=== PATIENT | male | born 1965 | race Two or more races ===

== ENCOUNTER 2020-04-20 07:55 | Emergency (ER) | payer MEDICAID ==
[~2020-04-20] VITALS: Ht 190.5 cm; Wt 99.8 kg
[2020-04-20 07:55] VITALS: BP 146/92
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
[2020-04-20] MEDS ORDERED: fentaNYL 100 mcg/2 mL IV ONE ×2 (08:00→09:12)
[2020-04-20] MEDS ORDERED: ABILIFY2 MG ORAL (08:07)
[2020-04-20] MEDS ORDERED: BENADRYL25 MG ORAL (08:07)
--- NOTE | 2020-04-20 08:13 | NUR ---
ED Nurse Note: 20 g IV started in left AC, patent and intact. Blood drawn and sent to lab.
--- NOTE | 2020-04-20 08:15 | NUR ---
ED Nurse Note: Patient taken to CT
[2020-04-20 08:31] LABS: BASOPHILS % (AUTO) 1.7 % (0.0-2.0); EOSINOPHILS % (AUTO) 1.1 % (0.0-3.0); HEMATOCRIT 43.6 % (42.0-52.0); HEMOGLOBIN 14.4 G/DL (14.2-18.0); MEAN CORPUSCULAR VOLUME 102 FL (80-99); MONOCYTES % (AUTO) 7.2 % (1.0-10.0); PLATELET COUNT 277 K/UL (150-450); RED BLOOD COUNT 4.28 M/UL (4.70-6.10); WHITE BLOOD COUNT 8.3 K/UL (4.8-10.8)
--- NOTE | 2020-04-20 08:35 | NUR ---
ED Nurse Note: Patient returned from CT. US at bedside
[2020-04-20 08:37] LABS: INR 0.9 (0.9-1.1)
[2020-04-20 08:40] LABS: ANION GAP 9 mmol/L (5-15); BLOOD UREA NITROGEN 9 mg/dL (7-18); CALCIUM 8.6 MG/DL (8.5-10.1); CARBON DIOXIDE 28 MMOL/L (21-32); CHLORIDE 105 MMOL/L (98-107); POTASSIUM 3.7 MMOL/L (3.5-5.1); SODIUM 142 MMOL/L (136-145)
[2020-04-20 08:50] LABS: ALANINE AMINOTRANSFERASE 72 U/L (12-78); ALBUMIN 3.5 G/DL (3.4-5.0); ALKALINE PHOSPHATASE 63 U/L (46-116); ASPARTATE AMINO TRANSFERASE 40 U/L (15-37); BILIRUBIN,TOTAL 0.2 MG/DL (0.2-1.0); CREATINE KINASE 830 U/L (26-308)
--- NOTE | 2020-04-20 08:50 | NUR ---
HAND-OFF: Report given to Yvette CASILLAS.
[2020-04-20] MEDS ORDERED: Clindamycin 900mg 50 ML IV ONE (09:15)
--- NOTE | 2020-04-20 09:18 | Diagnostic Imaging Report ---
EXAM: CT CT Pelvis no Contrast INDICATION: Trauma with pelvic pain. COMPARISON: None TECHNIQUE: Axial images were obtained through the pelvis without intravenous contrast. Sagittal and coronal reformats are generated. All CT scans at this facility are performed using dose modulation techniques as appropriate to a performed exam including the following: automated exposure control with adjustment of the mA and/or kV according to patient size. RADIATION DOSE: CTDIvol: 11.4 mGy DLP: 358.3 mGy-cm Dose information generated by the CT scanner is available in PACS. FINDINGS: Small bowel loops are nondistended. Mild increased stool lucencies noted in the colon. The appendix is not visualized. There is no free fluid or free air. No pathologic adenopathy demonstrated. Urinary bladder appears unremarkable. There are degenerative changes noted in the lower lumbar spine, involving both SI joints as well as degenerative changes in both hips. Mild degenerative changes also noted at the pubic symphysis. There is no fracture or malalignment demonstrated. Surrounding soft tissues unremarkable. IMPRESSION: NO ACUTE FRACTURE OR MALALIGNMENT. DEGENERATIVE CHANGES NOTED IN THE LOWER LUMBAR SPINE, SI JOINTS AND BOTH HIPS.
--- NOTE | 2020-04-20 09:23 | Diagnostic Imaging Report ---
EXAM: CT CT L Spine no Contrast CLINICAL HISTORY: Trauma with back pain. TECHNIQUE: Axial images obtained through the lumbar spine with subsequent sagittal and coronal reformat images. All CT scans at this facility are performed using dose modulation techniques as appropriate to a performed exam including the following: automated exposure control with adjustment of the mA and/or kV according to patient size. RADIATION DOSE: CTDIvol: 14.1 mGy DLP: 428.7 mGy-cm Dose information generated by the CT scanner is available in PACS. COMPARISON: None FINDINGS: There is anatomic alignment. Vertebral bodies are intact without compression deformity. There is no fracture, bony lesions or erosions. Diffuse spondylosis is noted with multilevel disc space narrowing and bridging osteophyte formation. Vacuum disc identified at L3-4 and L5-S1. There is no paraspinal soft tissue abnormality. IMPRESSION: NO ACUTE FRACTURE OR MALALIGNMENT. MILD TO MODERATE DIFFUSE SPONDYLOSIS.
--- NOTE | 2020-04-20 09:27 | Diagnostic Imaging Report ---
EXAM: CT CT Head no Contrast INDICATION: Trauma with head pain. TECHNIQUE: Axial images of the brain were obtained with subsequent sagittal and coronal reformats. All CT scans at this facility are performed using dose modulation techniques as appropriate to a performed exam including the following: automated exposure control with adjustment of the mA and/or kV according to patient size. COMPARISON STUDY: None. RADIATION DOSE: CTDIvol: 53.4 mGy DLP: 1045.5 mGy-cm Dose information generated by the CT scanner is available in PACS. FINDINGS: There is normal symmetry and normal holland-white differentiation. There is no acute large territory cortical infarct, hemorrhage, mass effect or shift. Ventricles and cisterns as well as brainstem and posterior fossa appear unremarkable. The sellar region is normal. Sinuses, mastoid air cells and bony calvarium appear intact. IMPRESSION: NO ACUTE INTRACRANIAL ABNORMALITY.
--- NOTE | 2020-04-20 09:29 | Diagnostic Imaging Report ---
Procedure: XRAY Chest 1v Reason for study: Trauma with chest pain Comparison films: None. FINDINGS: A single one view chest is obtained. Vascularity is normal. Mild hazy densities lung bases likely atelectasis. Cardiac and mediastinal silhouette are within normal limits. CP angles are sharp. The bony thorax appear unremarkable. IMPRESSION: Mild bibasilar atelectasis.
--- NOTE | 2020-04-20 09:30 | Diagnostic Imaging Report ---
EXAM: ULTRASOUND Venous Duplex Lower Ext Uni CLINICAL HISTORY: Leg pain and edema. COMPARISON: None TECHNIQUE: Doppler examination include grayscale images obtained with and without compression, and color and spectral doppler analysis. FINDINGS: Doppler examination shows normal spontaneity, phasicity, compressibility in the left lower extremity. There is no thrombus identified by grayscale. Normal color and spectral flow is identified. There is no evidence of valvular incompetency or insufficiency. IMPRESSION: UNREMARKABLE VENOUS DUPLEX.
[2020-04-20 09:33] LABS: APPEARANCE,URINE CLEAR; BILIRUBIN, URINE NEGATIVE (NEGATIVE); COLOR,URINE PALE YELLOW; GLUCOSE, URINE (UA) NEGATIVE (NEGATIVE); KETONES,URINE NEGATIVE (NEGATIVE); LEUKOCYTE ESTERASE ,URINE NEGATIVE (NEGATIVE); NITRITE,URINE NEGATIVE (NEGATIVE); PH,URINE 7 (4.5-8.0); PROTEIN,URINE NEGATIVE (NEGATIVE); UROBILINOGEN,URINE NORMAL MG/DL (0.0-1.0)
--- NOTE | 2020-04-20 09:49 | NUR ---
ED Nurse Note:pain meds were given, urine sent to labs
--- NOTE | 2020-04-20 10:02 | NUR ---
ED Nurse Note:pt. pulled out IV and was given food per demend
--- NOTE | 2020-04-20 10:11 | Diagnostic Imaging Report ---
EXAM: X-RAY XRAY Femur 2v L CLINICAL HISTORY: Trauma with leg pain. COMPARISON: None FINDINGS: Total of 2 views of the left femur were obtained. Radiographs are limited. There is no fracture, bony lesions or erosions. Mild degenerative changes noted at both the hip and the knee. Surrounding soft tissue is normal. IMPRESSION: MILD DEGENERATIVE CHANGES. NO FRACTURE IN THE PRESENTED IMAGES.
--- NOTE | 2020-04-20 10:21 | Diagnostic Imaging Report ---
EXAM: X-RAY XRAY Leg Lower Tib Fib 2v L CLINICAL HISTORY: Trauma with leg pain. COMPARISON: None FINDINGS: Total of 2 views of the left tibia and fibula were obtained. Alignment is anatomic. There is no fracture, bony lesions or erosions. Degenerative changes of the knee noted. Surrounding soft tissue is normal. IMPRESSION: NO FRACTURE.
[2020-04-20] MEDS ORDERED: CLINDAMYCIN HC300 MG ORAL (10:22)
[2020-04-20 10:25] VITALS: BP 146/92
--- NOTE | 2020-04-20 10:25 | NUR ---
ER DISCHARGE NOTE: Patient is cleared to be discharged per ERMD, pt is aox4, on room air, with stable vital signs. pt was given dc and prescription instructions, pt was able to verbalize understanding, pt id band and iv site removed without complications. pt is able to ambulate with steady gait. pt took all belongings.
== END 2020-04-20 10:40 | disposition home or self-care (01) ==
LOC: EDBD 07:55 → EMR 08:10
DX: T14.90XA Injury, unspecified, initial encounter (principal); R60.0 Localized edema; M25.552 Pain in left hip; M54.5 Low back pain; L03.90 Cellulitis, unspecified; M62.82 Rhabdomyolysis; F16.10 Hallucinogen abuse, uncomplicated; F14.10 Cocaine abuse, uncomplicated; F12.20 Cannabis dependence, uncomplicated; F17.200 Nicotine dependence, unspecified, uncomplicated; I10 Essential (primary) hypertension; W01.10XA Fall on same level from slipping, tripping and stumbling with subsequent striking against unspecified object, initial encounter; Y93.89 Activity, other specified; Y92.811 Bus as the place of occurrence of the external cause
CPT/HCPCS: 36415; 70450; 71045; 72131; 72192; 73552; 73590; 80053; 80307; 81003; 82550; 83605; 83735; 83880; 84484; 85025; 85610; 85730; 87040; 93005; 93971; 96361; 96365; 96375; J3010; J7030; S0077; Z7502; 99284